=== PATIENT | female | born 2000 | race African-American/Black ===

== ENCOUNTER 2020-08-07 11:57 | Emergency (ER) | payer MEDICAID ==
[2020-08-07] MEDS ORDERED: OLANZAPINE INJ/PF 10 MG SDV IM ONE (15:35)
[2020-08-07] MEDS ORDERED: CHLORPROMAZINE HCL INJ 25 MG/1 ML AMPULE IM ONE (15:35)
[2020-08-07] MEDS ORDERED: CHLORPROMAZINE HCL INJ 25 MG/1 ML AMPULE IM PRN (15:36)
[2020-08-07 16:03] LABS: APPEARANCE,URINE TURBID; BILIRUBIN,URINE NEGATIVE (NEGATIVE); COLOR,URINE AMBER; GLUCOSE, URINE NEGATIVE (NEGATIVE); KETONES,URINE 80 mg/dL (NEGATIVE); LEUKOCYTE ESTERASE,URINE MODERATE (NEGATIVE); NITRITE,URINE NEGATIVE (NEGATIVE); PROTEIN,URINE 30 mg/dL (NEGATIVE); URINE SPECIFIC GRAVITY 1.033
[2020-08-07 16:14] LABS: URINE AMPHETAMINES SCREEN NEGATIVE; URINE BARBITURATES SCREEN NEGATIVE; URINE BENZODIAZEPINES SCREEN NEGATIVE; URINE COCAINE SCREEN NEGATIVE; URINE METHADONE SCREEN NEGATIVE; URINE PHENCYCLIDINE SCREEN NEGATIVE
[2020-08-07 16:15] LABS: URINE MARIJUANA (THC) SCREEN UNCONFIRMED POSITIVE
[2020-08-07] MEDS: OLANZAPINE INJ/PF 10 MG SDV IM SCH (17:21)
[2020-08-07 17:29] LABS: ABSOLUTE LYMPHOCYTES (AUTO) 1.2 10^3/uL (0.5-4.7); ABSOLUTE MONOCYTES (AUTO) 0.8 10^3/uL (0.1-1.4); ABSOLUTE NEUT (AUTO) 6.7 10^3/uL (1.7-8.2); BASOPHILS % (AUTO) 0.5 % (0-2); HEMATOCRIT 37.1 % (36.0-47.0); HEMOGLOBIN 11.6 g/dL (12.0-15.5); MEAN CORPUSCULAR HEMOGLOBIN 25.9 pg (27.0-33.4); MEAN CORPUSCULAR HGB CONC 31.3 g/dL (32.0-36.0); MEAN CORPUSCULAR VOLUME 83 fl (80-97); MONOCYTES % (AUTO) 8.9 % (3-13); PLATELET COUNT 269 10^3/uL (150-450); RED BLOOD COUNT 4.48 10^6/uL (3.72-5.28); RED CELL DISTRIBUTION WIDTH 15.5 % (11.5-14.0); SEGMENTED NEUTROPHILS % (AUTO) 76.6 % (42-78); TOTAL CELLS COUNTED % (AUTO) 100 %; WHITE BLOOD COUNT 8.8 10^3/uL (4.0-10.5)
[2020-08-07 17:53] LABS: ALBUMIN 4.5 g/dL (3.5-5.0); ALKALINE PHOSPHATASE 109 U/L (38-126); ANION GAP 9 (5-19); ASPARTATE AMINO TRANSFERASE 28 U/L (14-36); BILIRUBIN,DIRECT 0.2 mg/dL (0.0-0.4); BLOOD UREA NITROGEN 7 mg/dL (7-20); CALCIUM 9.7 mg/dL (8.4-10.2); CARBON DIOXIDE 25 mmol/L (22-30); CHLORIDE 106 mmol/L (98-107); GLUCOSE 90 mg/dL (75-110); TOTAL PROTEIN 7.9 g/dL (6.3-8.2)
[2020-08-07 17:54] LABS: ACETAMINOPHEN < 10 ug/mL (10-30); ALCOHOL < 10 mg/dL (NONE DETECTED); SALICYLATE < 1.0 mg/dL (2.0-20.0)
--- NOTE | 2020-08-07 19:11 | PSYCHOLOGICAL NOTE ---
Psych Note - Psych Note Date seen by psych provider: 08/07/20 Time seen by psych provider: 14:20 Psych Note: Reason for Consult: unknown reason Consent permissions: mother, Zhanna ([phone]), and sister, Patt ([phone]) [id number] Patient is a 20 year old female who was admitted to the ED via POV and petitioned for IVC. She denies suicidal and homicidal ideation, plan, and intent. She states she came to the ED due to not feeling well. She denies me ntal health history. States she told her father she did not feel well and did not want to be left. She states she lives with her father. Patient reports taking medication for anxiety and states she takes iron pills. She cannot recall where she gets medication. Clinician checked back in with patient and family to update them on 24 hour petition and medications. Patient interjected saying, I have a question. When asked to ask her question, she stated, I am Zoila Holt. She did this 3 times in the conversation and stated, I know who I am. Patient stated she was not going to eat the hospital food because I am Zoila Holt and I know who I am and was informed she could not have outside food. Collateral obtained from mother and sister outside of patients room [id number] Mother and sister report taking patient to the ED due to patient being out of it. Mother reports patient keeps telling them to not leave her and she does not want to . They note patient is not at her baseline. Mother states patient was reportedly (according to boyfriend) looking into the mirror, holding her eyes open and counting, 1, 2, 3. Sister reports patient thinks she is to her boyfriend. Mother reports they have been together for a year. Mother states patient called her 2 days ago stating she was saved by their dipper and baker. Mother reports yesterday patient took her shirt off and told her mother she needed to wash the demons off. Mother states patient continues to tell them to not leave her. Mother reports patient lives with her and they did sleep at [facility] house last night; the whole family. Mother states patient has not slept in 3 days. Sister reports patient found out her other sister is dying due to heart issues, COVID positive, and having two strokes. Mother states patient has been bizarre since yesterday evidenced by continuing to tell family to not leave her and that she does not want to . Sister states patient has a cousin who was shot and killed last month and yesterday patient stated out loud, Boom. I am , followed by the name of her cousin who . Mother denies family history of mental health. She denies mental health history for patient. States patient does have anxiety and used to be on medication, but cannot recall medications. Mother reports patient does use marijuana and states it is possible the marijuana was laced. Mother states the person who smoked with patient is fine, but states patients drink was laced this past summer, therefore it is possible. Patient was alert and oriented to self, person, place, and time. She was not aware of situation leading her to the ED. Mood was bizarre with flat affect. She denies current suicidal and homicidal ideation, plan, and intent. It is unclear if patient is responding to internal stimuli as she maintained fair eye contact, however there was a large processing delay when patient would answer questions from clinician. Thought processes are disorganized. Conversational speech was within normal limits for rate, tone and prosody. Intellectual abilities are estimated to be average. Insight, judgment and impulse control were fair as evidenced by reaching out to family when she did not feel well. Patient engages inappropriately as there is a delay prior to responding to clinicians questions. Clinical Presentation: possible psychosis Medication recommendations per [facility] contracted psychiatrist, Dr. Mason ANGEL, are as follows: one time dose NOW of Zyprexa 5mg IM and Thorazine 25mg IM start Zyprexa 5mg IM bid and Thorazine 25mg IM q6prn Impression\plan: Patient is recommended for 24 hour petition. She is currently not at her reported baseline, is paranoid towards family about them leaving her and her dying, she has not slept in 3 days, and recently used marijuana. Patient is possibly in psychosis as she is slow to respond to yes/no questions and appears as if she is unable to quickly process the questions addressed to her. Patients sister is on life support and about to and patient was informed on of this traumatic news. Medication recommendations are in and patient is recommended for overnight mental health observation. She will be re-evaluated tomorrow, 08.08.2020. Dr. Pineda was consulted to care management of this patient; attending physicians in agreement with recommendations and disposition.
[2020-08-07] MEDS ORDERED: LIDOCAINE 1% INJ-PF (10 MG/ML) 30 ML SDV INJ ONE (19:18)
[2020-08-07] MEDS ORDERED: CEFTRIAXONE INJ 1000 MG VIAL IV ONE (19:18)
--- NOTE | 2020-08-07 19:18 | ER Document Report ---
ED Psych Disorder / Suicide <YUAN ZELAYA - Last Filed: 08/08/20 15:24> <KARLENE ALVAREZ - Last Filed: 08/09/20 07:18> - General Chief Complaint: Psych Problem Stated Complaint: PSYCH PROBLEM Time Seen by Provider: 08/07/20 14:03 Primary Care Provider: [facility] [Outside] - Follow up as needed [facility] [Outside] - Follow up as needed [facility] [Outside] - Follow up as needed Notes: Patient is a 20-year-old female who is unable to provide me any history on why she is here. Patient's mother and sister are here at bedside and states that the patient was "not feeling well." Patient is currently on Vistaril and iron pills. According to the family, the patient's cousin was killed last month and the patient found out just recently. Mother reports that the patient does smoke marijuana. Patient's other sister ended up being positive for Covid 19 and is sprained at another hospital. Patient found this out recently. Patient denies any suicidal or homicidal ideation. (KARLENE ALVAREZ) - Related Data Allergies/Adverse Reactions: No Known Allergies Allergy (Unverified 08/08/20 07:49) Past Medical History - Social History Smoking Status: Current Some Day Smoker Chew tobacco use (# tins/day): No Frequency of alcohol use: None Drug Abuse: Marijuana Family History: Reviewed & Not Pertinent <KARLENE ALVAREZ - Last Filed: 08/09/20 07:18> Review of Systems <KARLENE ALVAREZ - Last Filed: 08/09/20 07:18> - Review of Systems Notes: REVIEW OF SYSTEMS: CONSTITUTIONAL : Denies recent illness. Denies recent unintentional weight loss. Denies fever, chills, or sweats. EENT: Denies eye, ear, throat, or mouth pain, discharge, or symptoms. Denies nasal or sinus congestion. CARDIOVASCULAR: Denies chest pain. RESPIRATORY: Denies shortness of breath, cough, congestion, difficulty breathing, or wheezing. GASTROINTESTINAL: Denies nausea, vomiting, and diarrhea. Denies abdominal pain. Denies constipation. GENITOURINARY: Denies difficulty urinating, burning, blood in urine, urgency or frequency. MUSCULOSKELETAL: Denies neck and back pain. Denies joint pain or swelling. SKIN: Denies rash, itchiness, or lesions HEMATOLOGIC : Denies easy bruising or bleeding. LYMPHATIC: Denies swollen, painful, enlarged glands. NEUROLOGICAL: Denies no numbness or tingling denies weakness. Denies headache. Denies altered mental status. Denies alteration in speech. PSYCHIATRIC: See HPI. All other systems reviewed and negative. (KARLENE ALVAREZ) Physical Exam <KARLENE ALVAREZ - Last Filed: 08/09/20 07:18> - Vital signs Vitals: Temp Pulse Resp BP Pulse Ox 98.4 F 63 22 H 191/164 H 100 08/07/20 14:16 08/07/20 14:16 08/07/20 14:16 08/07/20 14:16 08/07/20 14:16 - Notes Notes: PHYSICAL EXAMINATION: GENERAL: Appears well, healthy, well-nourished, no acute distress. HEAD: Normocephalic, atraumatic. EYES: PERRL, conjunctiva normal, all extraocular movements intact, sclera nonicteric ENT: Moist mucous membranes. NECK: Supple, no noticeable swelling, redness, rash. Normal range of motion. LUNGS: Equal breath sounds bilaterally and clear to auscultation. No wheezes rales or rhonchi. CARDIOVASCULAR: S1-S2, regular rate, regular rhythm. Radial pulses 2+, normal. ABDOMEN: Normoactive bowel sounds. Soft, nontender, no guarding, no rebound tenderness, and no masses palpated. EXTREMITIES: Normal strength and range of motion, no pitting or edema. No cyanosis. NEUROLOGICAL: Moves all extremities upon command. Strength 5/5 in all extremities. PSYCH: Flat affect. Stoic. SKIN: Warm, dry. No rash, lesions, ulcerations noted. Normal skin turgor. (KARLENE ALVAREZ) Course - Laboratory Results Result Diagrams: 08/07/20 16:56 08/07/20 16:56 <YUAN ZELAYA - Last Filed: 08/08/20 15:24> - Laboratory Results Result Diagrams: 08/07/20 16:56 08/07/20 16:56 Critical Laboratory Results Reviewed: No Critical Results - Radiology Results Critical Radiology Results Reviewed: No Critical Results <KARLENE ALVAREZ - Last Filed: 08/09/20 07:18> - Re-evaluation Re-evalutation: 08/07/20 19:03 Hematology is unremarkable, other than a hemoglobin of 11.6. Patient is chronically anemic. She is on ferrous sulfate. Chemistries are unremarkable. Patient has a moderate amount of leukocytes in her urine. She also has 27 WBCs. She does have 3+ bacteria on her urinalysis. We will start the patient on Keflex. Patient is positive for marijuana, which we know from family. Salicylates, acetaminophen, and alcohol are negative. (KARLENE ALVAREZ) - Vital Signs Vital signs: Temp Pulse Resp BP Pulse Ox 98.3 F 67 12 123/62 98 08/08/20 07:43 08/08/20 08:00 08/08/20 08:00 08/08/20 08:00 08/08/20 08:00 - Laboratory Results Laboratory Results Interpreted: 08/07/20 08/07/20 08/07/20 14:30 16:56 16:56 Hgb 11.6 L MCH 25.9 L MCHC 31.3 L RDW 15.5 H Urine Protein 30 H Urine Ketones 80 H Urine Urobilinogen 2.0 H Ur Leukocyte Esterase MODERATE H Salicylates < 1.0 L Acetaminophen < 10 L Discharge <YUAN ZELAYA - Last Filed: 08/08/20 15:24> <KARLENE ALVAREZ - Last Filed: 08/09/20 07:18> - Discharge Clinical Impression: Grief Altered mental status Qualifiers: Altered mental status type: unspecified Qualified Code(s): R41.82 - Altered mental status, unspecified Urinary tract infection Qualifiers: Urinary tract infection type: acute cystitis Hematuria presence: with hematuria Qualified Code(s): N30.01 - Acute cystitis with hematuria Condition: Fair Disposition: HOME, SELF-CARE Additional Instructions: Your urine shows findings consistent with a urinary tract infection. Please take all the antibiotics as directed even if your symptoms have improved. Please follow-up with your primary care physician as needed. Return to emergency room if you develop fever >101F, persistent vomiting, become lethargic, have severe pain in your sides, or any other symptoms that are c oncerning to you. You have been evaluated by both medical and behavioral health teams for altered mental status. You have been deemed appropriate for discharge. While in the emergency department you received the following services/or had access to: Medical screening and assessment, nursing services, dietary services, pharmacological services, one-on-one counseling and/or psychotherapy, environm ental services, and continuous observation by a patient work environment safety inspector. Altered Mental Status An altered mental status is a change in the normal functioning of the brain. This alteration of function can range from minor decreased brain function with some forgetfulness and confusion to complete loss of consciousness and coma. There are many possible causes of an altered mental status and include brain injuries such as trauma or strokes, problems with oxygen supply to the brain, fever and infections of the brain and/or elsewhere in the body, metabolic abnormalities such as low or high blood sugar, overdoses or excessive medication ingestion, and mental and psychiatric illnesses. Sometimes the altered mental status resolves and a definite cause is not determined. If a cause for your altered mental status was found, it has likely been corrected. Your evaluation has not shown any condition that requires that you be admitted to the hospital. It is believed that you are safe to leave and return to your home. If you have a return of your symptoms, you should return for re-evaluation. Follow up care: You are currently not involved in outpatient therapy, but are highly recommended to begin outpatient services to address grief and bereavement. Your mother and sister agree to assume responsibility of your care in which you will be staying with your mother and sister and your fathers house. It is noted a camera is in the home that gives notifications when movement is made and this is in order to ensure your safety 24/ until you have returned to baseline. You have been given a community outpatient referral list to include phone numbers for [facility] and [facility] mobile crisis. If you experience worsening or a significant change in your symptoms, notify the physician immediately, utilize mobile crisis, or return to the Emergency Department at any time for re-evaluation. Dr. Pineda was consulted to care management of this patient; attending physicians in agreement with recommendations and disposition. Prescriptions: Cephalexin [Keflex] 500 mg PO BID #12 capsule Referrals: [facility] [Outside] - Follow up as needed [facility] [Outside] - Follow up as needed [facility] [Outside] - Follow up as needed
[2020-08-07] MEDS ORDERED: CEFTRIAXONE INJ 1000 MG VIAL IM ONE (21:32)
[2020-08-08] MEDS ORDERED: LIDOCAINE 1% INJ-PF (10 MG/ML) 30 ML SDV INJ ONE (06:45)
[2020-08-08] MEDS ORDERED: CEFTRIAXONE INJ 1000 MG VIAL IM ONE (06:45)
[2020-08-08 08:38] VITALS: BP 123/62
[2020-08-08] MEDS: CEPHALEXIN 500 MG CAPSULE PO SCH ×2 (09:43→18:00)
[2020-08-08] MEDS: OLANZAPINE INJ/PF 10 MG SDV IM SCH ×2 (09:44→19:44)
[2020-08-08 14:54] LABS: T.VAGINALIS (WET MOUNT) NO TRICHOMONAS SEEN
[2020-08-08 14:55] LABS: EPITHELIALS (WET MOUNT) 3+ EPITHELIALS SEEN; WBCS (WET MOUNT) 3+ WBCS SEEN; YEAST (WET MOUNT) NO YEAST SEEN
--- NOTE | 2020-08-08 15:02 | ER Document Report ---
Doctor's Note Notes: 08/08/20 15:01 PHYSICAL EXAMINATION: GENERAL: Appears well, healthy, well-nourished, no acute distress. LUNGS: Equal breath sounds bilaterally and clear to auscultation. No wheezes rales or rhonchi. CARDIOVASCULAR: S1-S2, regular rate, regular rhythm. Radial pulses 2+, normal. ABDOMEN: Normoactive bowel sounds. Soft, nontender, no guarding, no rebound tenderness, and no masses palpated. PSYCH: Still has flat affect. Is able to interact a little more. Patient denies any suicidal or homicidal ideation. Marianne, PCT at bedside for pelvic swabs. Pelvic exam not done with speculum, as patient is not sexually active. Will reevaluate wet mount. 08/08/20 18:39 Mental health has cleared the patient and rescinded her IVC. Wet mount is unremarkable. Gonorrhea and Chlamydia are negative. This shows that the patient's urinary tract infection is indeed coming from her urine and not her vagina. We will continue the patient on Keflex. Patient and mother in agreement with this plan. Follow-up precautions were given. Verbal discharge instructions were given to the patient. They verbalized understanding. They are stable for discharge.
[2020-08-08 16:24] LABS: CHLAM PCR NOT DETECTED (NOT DETECT)
--- NOTE | 2020-08-08 18:13 | PSYCHOLOGICAL NOTE ---
Psych Note - Psych Note Date seen by psych provider: 08/08/20 Time seen by psych provider: 10:49 Psych Note: Reason for Consult: altered mental status, possible psychosis Re-eval [id number] Patient was re-evaluated today in the ED. No improvements were noted by the behavioral health clinician. Patient maintained eye contact when clinician spoke, but did not reply. Clinician asked patient how she was feeling and if she slept. Patient continued to stare at clinician. Clinician asked patient to give a thumbs up if she was doing well and a thumbs down if she was not doing well and patient responded with a thumbs down. Patient would not engage with clinician besides this. Patient was asked if she had any questions and she replied, yes. When asked to ask her question, she replied, yes again. That was as far as interaction went between clinician and patient. Patient was observed rocking her legs and hips back and forth and rubbing her belly. Sister was at bedside and reported patient slept last night and reported she slept well. She reported mother would be in around 1200. Clinician checked in with patient, mother, sister, and mothers sister ([facility] staff) who was all in the room. Clinician addressed [facility] staff that patient is only allowed 2 visitors and it is supposed to be one at a time. [facility] staff replied, I know and I am about to leave, but this is my sister (pointing to mother). Mother was informed patient was under full IVC. Clinician explained what this looks like. Mother inquired about placement and if she was able to take patient home. Mother reported patient appeared better to them. She reported they were talking to her and she was facetiming her boyfriend like normal. Mother states she is just not engaging with new people ([facility] staff). Mother notes patient is not typically shy with new people nor does she have social anxiety. After discussion with Behavioral Health team, it was decided to rescind IVC. While patients mental status is still altered, family reports improvements and plan to keep patient safe 17/02. Mother also agrees to return to the ED if symptoms worsen. Clinical Presentation: altered mental status; complicated grief reaction IVC Criteria per [facility] 122C Dangerous to others Within the relevant past the individual No has inflicted or attempted to inflict or threatened to inflict serious bodily harm on another AND No that there is a reasonable probability that this conduct will be repeated. OR No has acted in such a way as to create a substantial risk of serious bodily harm to another AND No that there is a reasonable probability that this conduct will be repeated. OR No has engaged in extreme destruction of property AND NO that there is a reasonable probability that this conduct will be repeated. Previous episodes of dangerousness to others, when applicable, may be considered when determining reasonable probability of future dangerous conduct. Clear, cogent, and convincing evidence that an individual has committed a homicide in the relevant past is prima facie evidence of dangerousness to others. Dangerous to self Within the relevant past the individual has done any of the following: acted in such a way as to show ALL of the following: No The individual would be unable without care, supervision, and the continued assistance of others not otherwise available, to exercise self- control, judgment, and discretion in the conduct of the individual's daily responsibilities and social relations or to satisfy the individual's need for nourishment, personal or medical care, half-way, or self-protection and safety. AND No There is a reasonable probability of the individual suffering serious physical debilitation within the near future unless adequate treatment is given. A showing of behavior that is grossly irrational, of actions that the individual is unable to control, of behavior that is grossly inappropriate to the situation, or of other evidence of severely impaired insight and judgment shall create a prima facie inference that the individual is unable to care for himself or herself. OR No has attempted suicide or threatened suicide AND No that there is a reasonable probability of suicide unless adequate treatment is given OR No has mutilated himself or herself or attempted to mutilate himself or herself AND No that there is a reasonable probability of serious self-mutilation unless adequate treatment is given. NOTE: Previous episodes of dangerousness to self, when applicable, may be considered when determining reasonable probability of physical debilitation, suicide, or self-mutilation. Impression\plan: Patient is cleared from psychiatric services. Patient is recommended to rescind IVC. Patient was admitted to the ED with altered mental status. At time of assessment patient denied SI/HI, plan, and intent. Patient reported coming to the ED to feel better. She was slow to respond to questions and did not engage appropriately. Family reported this was not patients baseline. Upon re-evaluation of patient, she was put under full IVC. Patient was not engaging appropriately with clinician and was unwilling to say anything except yes when asked if she had questions. Patient was initially interviewed alone and the next day with family by her side and there was little to no difference in interactions whether family was present or not. Patients family reports she slept last night and they report her mood is better today. Mother reports patient is engaging with them and talking and even facetimed with her boyfriend (clinician spoke to sitter watching camera who noted patient was on the phone and did seem to be talking to someone, laughing, and acting girly). Mother states she can assume care for patient and keep her safe and family agrees. IVC has been rescinded. Family is adamant to assume care of patient and has a safety plan in place. Patients mental state/ psychosis is not putting herself or others in danger at this time. There is still concern for patients altered mental status, however no behaviors prior to ED admission and while at the ED have caused harm to self or others. There is no reported mental health history, besides anxiety, and no family mental health history. It is believed that due to finding out traumatic news about her sister being on life support and about to , on , patient is having a complicated reaction to her bereavement and grief. Patient also lost a cousin last month after he was shot. Patient reportedly kept telling her mother and sister she did not want to and did not want them to leave her. Mother and sister agree to assume care of patient and report they can do so 17/02. Mother and sister report they will be staying at patients fathers house, have a camera in the home that gives notifications when movement is detected (in case patient were to get up in the middle of the night), and mother agrees to return to the ED if symptoms worsen. Patient and family were given resources on outpatient facilities in the area, [facility] for voluntary admission, and mobile crisis with [facility]. Dr. Pineda was consulted to care management of this patient; attending physicians in agreement with recommendations and disposition.
== END 2020-08-08 19:55 | disposition home or self-care (01) ==
LOC: ER 11:57
DX: F43.21 Adjustment disorder with depressed mood (principal); N30.01 Acute cystitis with hematuria; D64.9 Anemia, unspecified; F12.10 Cannabis abuse, uncomplicated; R41.82 Altered mental status, unspecified; F17.200 Nicotine dependence, unspecified, uncomplicated; Z63.4 Disappearance and death of family member; Z79.899 Other long term (current) drug therapy
CPT/HCPCS: 99285; 96372; 36415; 87086; 87210; 80307 ×4; 85025; 87088; 80053; 81001; 87491; 87591; J3230; J3490 ×3; J0696